=== PATIENT | female | born 1990 | race African-American/Black ===

== ENCOUNTER 2019-05-11 10:11 | Emergency (ER) | payer OTHER ==
[2019-05-11 10:32] VITALS: BP 153/81; PULSE 75; TEMP 98.3; BMI 38.2
[2019-05-11 11:31] LABS: PH,URINE 8.5 (5.0-8.0); URINE APPEARANCE CLOUDY; URINE BILIRUBIN NEGATIVE (NEGATIVE); URINE COLOR YELLOW; URINE GLUCOSE (UA) NEGATIVE (NEGATIVE); URINE KETONE NEGATIVE (NEGATIVE); URINE LEUK ESTERASE NEGATIVE (NEGATIVE); URINE NITRITE NEGATIVE (NEGATIVE); URINE PROTEIN NEGATIVE (NEGATIVE); URINE UROBILINOGEN 0.2 mg/dL (0.2-1.0)
--- NOTE | 2019-05-11 11:35 | PDOC ---
History of Present Illness - General Chief Complaint: Nausea/Vomiting Stated Complaint: VOMITING Time Seen by Provider: 05/11/19 11:07 History Source: Patient Exam Limitations: Clinical Condition - History of Present Illness Initial Comments: 05/11/19 11:31 Patient with history of PCOS presented with complaint of 2 months history of epigastric pain with burning sensation in the chest which has been intermittent with nausea. Denies vomiting. Patient also report missing last menstrual This month which usually have normal menstrual with LMP March 23. Denies diarrhea, constipation, urinary frequency, burning with urination, dysuria. Denies vaginal bleeding. Patient report was being treated on metformin a year ago due to irregular menstrual due to PCOS which was stopped after having normal menstrual. Denies any other symptoms Is this a multiple visit Asthma Patient?: No Past History - Past Medical History Allergies/Adverse Reactions: Allergies Allergy/AdvReac Type Severity Reaction Status Date / Time No Known Allergies Allergy Verified 05/20/14 13:51 Home Medications: Ambulatory Orders Albuterol Sulfate Inhaler - [Ventolin HFA Inhaler -] 1 - 2 inh PO QID 05/20/14 Chromium/Herbal Complex No.238 [Green Tea Caplet] 1 each PO DAILY 05/20/14 Omeprazole [Prilosec (RX)] 20 mg PO DAILY 05/20/14 Vitamin B Complex 1 each PO DAILY 05/20/14 Mag Carb/Aluminum Hydrox/Algin [Gaviscon Liquid] 355 ml PO Q4HWA #0 oral.susp Famotidine [Pepcid -] 40 mg PO DAILY #20 tablet 05/11/19 Ondansetron [Zofran *Odt*] 4 mg SL TID PRN #21 od.tablet 05/11/19 Anemia: No Asthma: Yes Cancer: No COPD: No CHF: No GI Disorders: Yes (HIATAL HERNIA) HTN: No - Surgical History Orthopedic Surgery: Yes (LEFT ANKLE) - Immunization History Immunization Up to Date: No - Psycho Social/Smoking Cessation Hx Smoking History: Never smoked Have you smoked in the past 12 months: No Information on smoking cessation initiated: No Hx Alcohol Use: No Drug/Substance Use Hx: No Substance Use Type: None Review of Systems - Review of Systems Able to Perform ROS?: Yes Is the patient limited Swedish proficient: No Constitutional: No: Chills, Fever, Malaise HEENTM: No: Symptoms Reported, See HPI, Eye Pain, Blurred Vision, Tearing, Recent change in vision, Double Vision, Cataracts, Ear Pain, Ocular Prothesis, Ear Discharge, Nose Pain, Nose Congestion, Tinnitus, Nose Bleeding, Hearing Loss , Throat Pain, Throat Swelling, Mouth Pain, Dental Problems, Difficulty Swallowing, Mouth Swelling, Other Respiratory: No: Symptoms reported, See HPI, Cough, Orthopnea, Shortness of Breath, SOB with Exertion, SOB at Rest, Stridor, Wheezing, Productive cough, Hemoptysis, Other Cardiac (ROS): No: Symptoms Reported, See HPI, Chest Pain, Edema, Irregular Heart Rate, Lightheadedness, Palpitations, Syncope, Chest Tightness, Other ABD/GI: Yes: Symptoms Reported, See HPI, Nausea, Abdominal cramping (epigastric pain). No: Abd. Pain w/ defecation, Blood Streaked Bowels, Constipated, Diarrhea, Difficulty Swallowing, Poor Appetite, Poor Fluid Intake, Vomiting, Indigestion : No: Symptoms Reported, Burning, Dysuria, Frequency, Urgency Musculoskeletal: No: Symptoms Reported Integumentary: No: Symptoms Reported All Other Systems: Reviewed and Negative *Physical Exam - Vital Signs Last Vital Signs Temp Pulse Resp BP Pulse Ox 98.3 F 75 18 153/81 99 05/11/19 10:28 05/11/19 10:28 05/11/19 10:28 05/11/19 10:28 05/11/19 10:28 - Physical Exam 05/11/19 11:35 GENERAL: Well developed, well nourished. Awake and alert. No acute distress. HEENT: Normocephalic, atraumatic. PERRLA, EOMI. No conjunctival pallor. Sclera are non-icteric. Moist mucous membranes. Oropharynx is clear. NECK: Supple. Full ROM. CARDIOVASCULAR: Regular rate and rhythm. No murmurs, rubs, or gallops. Distal pulses are 2+ and symmetric. PULMONARY: No evidence of respiratory distress. Lungs clear to auscultation bilaterally. No wheezing, rales or rhonchi. ABDOMINAL: Soft. Mild epigastric tenderness . Non-distended. No rebound or guarding. No organomegaly. Normoactive bowel sounds. MUSCULOSKELETAL Normal range of motion at all joints. SKIN: Warm and dry. Normal capillary refill. No rashes. No jaundice. No cyanosis NEUROLOGICAL: Alert, awake, appropriate. Gait is normal without ataxia. PSYCHIATRIC: Cooperative. Good eye contact. Appropriate mood General Appearance: Yes: Nourished, Appropriately Dressed. No: Apparent Distress ED Treatment Course - RADIOLOGY Radiology Studies Ordered: Category Date Time Status ABDOMEN US -LIMITED [US] Stat Ultrasound 05/11/19 11:29 Ordered Medical Decision Making - Medical Decision Making 05/11/19 11:33 Patient with history of PCOS presented with complaint of 2 months history of epigastric pain with burning sensation in the chest which has been intermittent with nausea. Denies vomiting. Patient also report missing last menstrual This month which usually have normal menstrual with LMP March 23. Denies diarrhea, constipation, urinary frequency, burning with urination, dysuria. Denies vaginal bleeding. Patient report was being treated on metformin a year ago due to irregular menstrual due to PCOS which was stopped after having normal menstrual. Denies any other symptoms Exam significant for mild epigastric tenderness without rebound or guarding. Patient afebrile. Symptoms likely GERD versus gastritis versus less likely cholecystitis versus . UA and urine hCG lab ordered. Abdominal ultrasound ordered to rule out cholecystitis or acute abnormality. Treat based on lab and imaging results 05/11/19 13:52 Urine hCG negative. UA with no acute abnormality. Abdominal ultrasound shows fatty infiltrate with mild hepatomegaly. Patient symptoms likely caused by gastritis causing GERD. Patient stable for discharge on Pepcid 40 mg daily and Zofran PRN for nausea and vomiting with GI follow-up Discharge - Discharge Information Problems reviewed: Yes Clinical Impression/Diagnosis: Epigastric abdominal pain, Fatty liver, GERD without esophagitis Condition: Stable Disposition: HOME - Admission No - Additional Discharge Information Prescriptions: Famotidine [Pepcid -] 40 mg PO DAILY #20 tablet Ondansetron [Zofran *Odt*] 4 mg SL TID PRN #21 od.tablet PRN Reason: vomiting - Follow up/Referral Referrals: Kev Ricks DO [Staff Physician] - eZny Grimes [Primary Care Provider] - Dale Smith MD [Staff Physician] - - Patient Discharge Instructions Patient Printed Discharge Instructions: DI for Nonalcoholic Fatty Liver Disease Additional Instructions: Your abdominal ultrasound shows mild fatty infiltrate of the liver is likely causing acid reflux causing abdominal pains. Take prescribed medication as prescribed for abdominal discomfort and nausea. Follow-up referred GI doctor - Post Discharge Activity Work/Back to School Note: Back to Work, Parent(s) Back to Work Note
== END 2019-05-11 13:54 | disposition home or self-care (01) ==
LOC: JERFT 10:11
DX: K21.9 Gastro-esophageal reflux disease without esophagitis (principal); K76.0 Fatty (change of) liver, not elsewhere classified; K44.9 Diaphragmatic hernia without obstruction or gangrene; E28.2 Polycystic ovarian syndrome; Z87.09 Personal history of other diseases of the respiratory system
CPT/HCPCS: 76705-TC; 81003; 84703; 87077; 87086; 99284-25